=== PATIENT | male | born 1965 | race Two or more races ===

== ENCOUNTER → 2017-01-15 | Outpatient (CLI) | payer SELFPAY ==
[2017-01-15 08:14] LABS: ABSOLUTE EOSINOPHILS # (AUTO) 0.3 10^3/uL (0.0-0.6); ABSOLUTE LYMPHOCYTES (AUTO) 2.6 10^3/uL (0.5-4.7); ABSOLUTE MONOCYTES (AUTO) 0.6 10^3/uL (0.1-1.4); BASOPHILS % (AUTO) 0.4 % (0-2); EOSINOPHILS % (AUTO) 4.2 % (0-6); HEMATOCRIT 48.4 % (37.9-51.0); HEMOGLOBIN 16.8 g/dL (13.5-17.0); LYMPHOCYTES % (AUTO) 33.9 % (13-45); MEAN CORPUSCULAR HEMOGLOBIN 31.3 pg (27.0-33.4); MEAN CORPUSCULAR HGB CONC 34.7 g/dL (32.0-36.0); MEAN CORPUSCULAR VOLUME 90 fl (80-97); MONOCYTES % (AUTO) 8.5 % (3-13); RED BLOOD COUNT 5.37 10^6/uL (4.35-5.55); RED CELL DISTRIBUTION WIDTH 13.2 % (11.5-14.0); WHITE BLOOD COUNT 7.5 10^3/uL (4.0-10.5)
[2017-01-15 08:40] LABS: ALANINE AMINOTRANSFERASE 90 U/L (21-72); ALBUMIN 4.3 g/dL (3.5-5.0); ALKALINE PHOSPHATASE 58 U/L (38-126); ANION GAP 12 (5-19); ASPARTATE AMINO TRANSFERASE 47 U/L (17-59); BILIRUBIN,DIRECT 0.4 mg/dL (0.0-0.4); BILIRUBIN,TOTAL 0.6 mg/dL (0.2-1.3); BLOOD UREA NITROGEN 15 mg/dL (7-20); CALCIUM 9.8 mg/dL (8.4-10.2); CARBON DIOXIDE 28 mmol/L (22-30); CHLORIDE 106 mmol/L (98-107); CHOLESTEROL 208.67 mg/dL (0-200); CREATININE RESULT 0.98 mg/dL (0.52-1.25); Direct HDL 42 mg/dL (>40); GLUCOSE 96 mg/dL (75-110); POTASSIUM 4.4 mmol/L (3.6-5.0); SODIUM 145.5 mmol/L (137-145); TOTAL PROTEIN 7.1 g/dL (6.3-8.2); TRIGLYCERIDES 241 mg/dL (<150)
[2017-01-15 08:53] LABS: DIRECT LDL 139 mg/dL (<100)
[2017-01-15 09:19] LABS: VLDL CHOLESTEROL 48.2 mg/dL (10-31)
== END ==
LOC: OD 07:06
PROVIDERS: ATTEND Internal Medicine
DX: I10 Essential (primary) hypertension (principal); E78.5 Hyperlipidemia, unspecified; R53.83 Other fatigue; R35.1 Nocturia
CPT/HCPCS: 36415; 80053; 80061; 84153; 84443; 85025